=== PATIENT | female | born 1960 | race Caucasian/White ===

== ENCOUNTER 2020-10-08 16:47 | Emergency (ER) | payer MEDICAID, SELFPAY ==
--- NOTE | ~2020-10-08 | CT_ITS ---
EXAMINATION: CT HUMERUS WITH CONTRAST, RIGHT CLINICAL INFORMATION: Question of hematoma or extravasation. COMPARISON: Radiographs from earlier today. TECHNIQUE: Volume acquisition CT was performed through the right upper extremity after the administration of 85 mL of Omnipaque 350. Coronal and sagittal reconstructions were performed. This CT examination was performed using dose optimization techniques as appropriate, variously including the following: *Automated exposure control *Adjustment of mA and/or kV according to patient size (this includes techniques or standardized protocols for targeted exams where dose is matched to indication/reason for exam; i.e. extremities or head) *Use of iterative reconstruction technique DLP: 157 mGy-cm FINDINGS: Again seen is the fracture involving the mid humeral diaphysis with some foreshortening and overriding as well as about 40 degrees of varus angulation of the distal fracture fragment. No other fractures are seen. The study was performed during the venous phase and arterial structures were not opacified. The basilic and brachial veins as well as the visualized axillary vein appear unremarkable. The cephalic vein is patent. Subcutaneous edema is present. Although comparison with the other side is not possible, it seems that most muscle groups appear expanded but a discrete separate hematoma is not seen. No areas of contrast accumulation are seen to suggest active extravasation. CT/CT humerus RT w con IMPRESSION: No evidence of active extravasation. Redemonstration of right humeral fracture. The entire arm is swollen significantly including most muscle groups. A discrete separate hematoma is not seen. Arterial structures cannot be assessed, for that, a CT angiogram would be necessary.
--- NOTE | ~2020-10-08 | XR_ITS ---
EXAMINATION: XR SHOULDER, RIGHT CLINICAL INFORMATION: Severe right-sided shoulder pain. COMPARISON: None TECHNIQUE: 2 view of the right shoulder. FINDINGS: Transverse fracture through the mid humeral shaft. There is approximately 4.8 cm of foreshortening and approximately 1.5 cm of medial offset of the distal fracture fragment. The humeral head continues to demonstrate good articulation with the glenoid fossa. There are mild hypertrophic changes of the acromioclavicular joint. Visualized lung parenchyma is well aerated. There are old healed right posterior rib fractures. XR/XR shoulder RT min 2V IMPRESSION: Right humeral fracture.
[2020-10-08 16:57] VITALS: BP 148/80; PULSE 98; RESP 20; TEMP 37.1; O2SAT 95; BMI 23.4
[2020-10-08] MEDS: Morphine Sulfate 4 MG/ML CARTRIDGE IVPUSH (17:36)
[2020-10-08 17:38] LABS: MANUAL DIFF FLAG NO
--- NOTE | 2020-10-08 17:40 | PC.NURSE ---
IV placed and pt medicated for 10/10 left arm pain with IV Morphine as ordered.
[2020-10-08 17:48] LABS: Basophils Absolute Auto 0.1 X10*3/uL (0.0-0.2); Basophils Percent Auto 0.5 % (0-2); Eosinophils Percent Auto 0.1 % (0-4); Hematocrit 34.5 % (37-47); Hemoglobin 11.3 g/dl (12.0-16.0); Imm Gran Abs Auto 0.04 X10*3/uL (0.00-0.03); Imm Gran Pct Auto 0.4 % (0.0-0.4); Lymphocytes Percent Auto 20.1 % (20-40); Mean Corpuscular HGB Conc 32.8 g/dl (31.0-35.0); Mean Corpuscular Hemoglobin 30.3 pg (27.0-33.0); Mean Corpuscular Volume 92.5 fL (80-98); Mean Platelet Volume 9.4 fL (9.4-12.3); Monocytes Absolute Auto 1.2 X10*3/uL (0.1-1.2); Neutrophils Absolute Auto 6.5 X10*3/uL (2.0-8.3); Neutrophils Percent Auto 66.9 % (45-73); Platelet Count 214 X10*3/uL (160-400); Red Blood Count 3.73 X10*6/uL (4.20-5.50); Red Cell Distribution Width 13.1 % (11.0-16.0); White Blood Count 9.8 X10*3/uL (4.8-10.8)
[2020-10-08 17:56] LABS: INTERNATIONAL NORM RATIO 0.9 (0.9-1.1); Prothrombin Time 11.2 SEC (10.8-13.0)
[2020-10-08 17:59] LABS: Partial Thromboplastin Time 30.8 SEC (24.1-38.0)
[2020-10-08 18:16] LABS: Ethanol 258 mg/dL
[2020-10-08 18:23] LABS: Anion Gap 18 (12-20); Blood Urea Nitrogen 20 mg/dL (9-16); Calcium 9.4 mg/dL (8.4-10.2); Carbon Dioxide 23 mmol/L (22-29); Chloride 100 mmol/L (96-108); Creatinine Clr Calc Pharmacy 47.3; Estimated Glomerular Filt Rate 51; Glucose Random 118 mg/dL (60-115); Potassium 3.7 mmol/L (3.3-5.1); Sodium 137 mmol/L (135-145)
[2020-10-08 18:24] LABS: Lactic Acid 2.8 mmol/L (0.5-2.0)
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
[2020-10-08] MEDS: 0.9 % Sodium Chloride 1,000 ML 999 ML IVCONT ×2 (18:29→22:25)
--- NOTE | 2020-10-08 18:33 | PC.NURSE ---
Pt to CT at this time. IVF bolus continues to infuse
[2020-10-08 19:36] LABS: Reflex Lactate? Lactic Acid Added
--- NOTE | 2020-10-08 20:02 | PC.NURSE ---
PT AWARE THAT SHE HAS A BAD FRACTURE TO HER RIGHT UPPER ARM. PT HAS ASKED SEVERAL TIMES TO GO HOME. PT INFORMED THAT HER ARM WILL NOT HEAL PROPERLY AND SHE MAY NOT BE ABLE TO USE RIGHT ARM, UNLESS IT IS REPAIRED. RIGHT ARM PLACED IN SLING. PT REQUESTING ADDITIONAL PAIN MEDICATION. PT ABLE TO TAKE A FEW STEPS TO BATHROOM, PCT ASSISTS.
[2020-10-08] MEDS: HYDROmorphone HCl 1 MG/ML SYRINGE IVPUSH (20:33)
[2020-10-08 21:07] VITALS: BP 109/48; PULSE 92; RESP 16; O2SAT 94
[2020-10-08 21:35] LABS: ~Lactic Acid-LAB USE ONLY 2.3 mmol/L (0.5-2.0)
[2020-10-08 22:06] VITALS: BP 105/55; PULSE 94; RESP 16; TEMP 37.3; O2SAT 94
[2020-10-08 22:15] LABS: COVID-19 Test Negative (Negative)
[2020-10-08 22:31] LABS: Alanine Aminotransferase 35 U/L (0-31); Albumin Level 4.6 g/dL (3.5-5.0); Alkaline Phosphatase 64 U/L (39-117); Aspartate Amino Transferase 70 U/L (5-31); Bilirubin Direct 0.2 mg/dL (0.0-0.5); Bilirubin Total 0.6 mg/dL (0.0-1.0); Total Protein 7.7 g/dL (6.5-8.0)
--- NOTE | 2020-10-08 22:51 | PC.NURSE ---
RIGHT UPPER ARM SPLINTED WITH FIBERGLASS MATERIAL, WRAPPED IN AME AND SANDOR BANGAGE. ARM PLACED BACK IN SLING. GOOD DISTAL CIRCULATION IN FINGERS.
[2020-10-08 22:52] LABS: Reflex Lactate? 2 Y
--- NOTE | 2020-10-08 23:36 | PC.NURSE ---
WAITING FOR SECOND LIER OF NORMAL SALINE TO FINISH BEFORE 3RD LACTIC ACID IS DRAWN. PT HAS BEEN SLEEPING FOR MOST OF THE ER VISIT. PT UNDERSTANDS PLAN TO SEND HER HOME BY CHAIR VAN. PT WILL FOLLOW UP WITH ORTHO, FOR EVALUATION AND SURGICAL REPAIR.
[2020-10-09] VITALS: BP 114/75; PULSE 92; RESP 18; O2SAT 94
[2020-10-09 00:45] LABS: Alanine Aminotransferase 24 U/L (0-31); Albumin Level 3.3 g/dL (3.5-5.0); Alkaline Phosphatase 48 U/L (39-117); Aspartate Amino Transferase 50 U/L (5-31); Bilirubin Direct 0.2 mg/dL (0.0-0.5); Bilirubin Total 0.6 mg/dL (0.0-1.0); Total Protein 5.4 g/dL (6.5-8.0)
[2020-10-09 01:02] LABS: Lactic Acid 1.5 mmol/L (0.5-2.0)
--- NOTE | 2020-10-09 01:22 | PC.NURSE ---
pt ambulatory to bathroom with steady gait. pt asking for additional pain medication.
[2020-10-09] MEDS: oxyCODONE HCl Immed Release 5 MG TABLET 10 MG PO (01:30)
[2020-10-09] MEDS: Acetaminophen 325 MG TABLET 650 MG PO (01:31)
[2020-10-09 02:00] VITALS: BP 118/64; PULSE 100; RESP 16; O2SAT 94
--- NOTE | 2020-10-09 02:42 | PC.NURSE ---
PT TRANSPORTED HOME BY EMS, NEEDED ASSISTANCE TO BATHROOM FOR SAFETY. PT SLIGHTLY OFF BALANCE FOLLOWING MULTIPLE DOSES OF OPIATES TO CONTROL PAIN.
== END 2020-10-09 02:42 | disposition home or self-care (01) ==
PROVIDERS: Emergency Provider Emergency Medicine; PCP Nurse Practitioner Primary Care
DX: S42.301A Unspecified fracture of shaft of humerus, right arm, initial encounter for closed fracture (principal); Y04.8XXA Assault by other bodily force, initial encounter; R74.02 Elevation of levels of lactic acid dehydrogenase [LDH]; Z20.822 Contact with and (suspected) exposure to COVID-19; Y93.9 Activity, unspecified; Y92.9 Unspecified place or not applicable; Y99.9 Unspecified external cause status
CPT/HCPCS: 29105; 36415; 73030; 73201; 80048; 80076; 80320; 83605; 85025; 85610; 85730; 87040; 87077; 87205; 87635; 96361; 96374; 96375; 99284; J1170; J2270; Q9967

== ENCOUNTER 2020-10-14 07:57 | Outpatient (REF) | payer MEDICAID, SELFPAY ==
--- NOTE | ~2020-10-14 | XR_ITS ---
EXAMINATION: XR SHOULDER, RIGHT CLINICAL INFORMATION: Fracture COMPARISON: Previous x-ray 10/07/2020 TECHNIQUE: 2 views of the right shoulder. FINDINGS: There is a comminuted oblique fracture of the right mid humeral shaft. There is medial displacement of the distal humeral shaft with respect to the more proximal humeral shaft. There is arthritis at the acromioclavicular joint. There is overlying soft tissue swelling. XR/XR shoulder RT min 2V IMPRESSION: Comminuted displaced angulated fracture of the right mid humeral shaft.
--- NOTE | ~2020-10-14 | XR_ITS ---
EXAMINATION: XR HUMERUS, RIGHT CLINICAL INFORMATION: Displaced oblique fracture of the shaft of the humerus. COMPARISON: 10/20/2020 TECHNIQUE: AP and lateral views of the right humerus. FINDINGS: There is a comminuted mid humeral diaphyseal fracture again noted. 3 major parts. There is medial displacement and anterior displacement of the distal fragments. There is some callus formation present. While the proximal fragment and mid fragments are closely positioned, the distal fragment remains significantly displaced from the middle fragment. Alignment maintained at the shoulder and elbow. XR/XR humerus RT IMPRESSION: Comminuted right humeral diaphyseal fracture with persistent displacement of fragments. Callus formation noted.
== END 2020-10-14 07:58 | disposition home or self-care (01) ==
LOC: HO.HOSX 07:57
PROVIDERS: Visit Provider Physician Assistant
DX: S42.301A Unspecified fracture of shaft of humerus, right arm, initial encounter for closed fracture (principal)
CPT/HCPCS: 73030; 99212

== ENCOUNTER 2020-10-20 02:22 | Inpatient (IN) | payer MEDICAID, SELFPAY ==
[2020-10-20] VITALS (9 sets, daily range): BP systolic 111–167; BP diastolic 53–81; PULSE 61–86; RESP 13–18; TEMP 36–36.7; O2SAT 93–99; BMI 25.7
--- NOTE | ~2020-10-20 | CT_ITS ---
EXAMINATION: CT HUMERUS WITH CONTRAST, RIGHT CLINICAL INFORMATION: Displaced fracture with underlying ulceration. COMPARISON: 10/08/2020. TECHNIQUE: Contiguous helical images of the right humerus were obtained following the administration of IV contrast. Multiplanar reconstructions were performed. 75 mL of Omnipaque 350 were administered without incident. This CT examination was performed using dose optimization techniques as appropriate, variously including the following: *Automated exposure control *Adjustment of mA and/or kV according to patient size (this includes techniques or standardized protocols for targeted exams where dose is matched to indication/reason for exam; i.e. extremities or head) *Use of iterative reconstruction technique DLP: 630 mGy-cm FINDINGS: Again identified is an oblique displaced mid humeral diaphyseal fracture. The distal fracture fragment is laterally displaced by approximately 5 cm. Newly demonstrated about the fracture site is an area of fluid attenuation interspersed amongst the musculature measuring approximately 9.3 x 3.9 cm best demonstrated on image 33/91. There is faint peripheral enhancement about this focus. This extends just deep to the skin surface. Since the prior exam, no significant progression in osseous manifestations of healing. No significant calcified callus. CT/CT humerus RT w con IMPRESSION: About the oblique midshaft right humeral diaphyseal fracture is an approximately 9.3 x 3.9 cm low attenuation/fluid attenuation focus with faint peripheral enhancement. This extends to the skin surface. The appearances nonspecific and better evaluated with ultrasound, though could correspond to a hematoma or seroma. Superimposed infection cannot be excluded. No significant progression in osseous manifestations of healing since the prior exam.
--- NOTE | 2020-10-20 03:38 | ED_ITS ---
HPI - Extremity Problem General Chief complaint: Extremity Injury, Upper Stated complaint: Right arm pain/etoh Time Seen by Provider: 10/20/20 03:34 Source: patient Mode of arrival: EMS History of Present Illness HPI Narrative: This is a 59-year-old female who was evaluated on 10/08 for a significantly displaced right humeral fracture. Patient has since been re- evaluated by orthopedics and she states that a plastic splint was placed on her arm but that it fell off and the arm is causing her a lot of pain, discoloration but otherwise denies fevers, chills, numbness or tingling into the distal right upper extremity.. Related Data Home Medications Medication Instructions Recorded Confirmed acetaminophen 325 mg PO Q8H PRN 10/08/20 10/20/20 albuterol sulfate [ProAir HFA] 2 puff PO Q4-6H PRN 10/08/20 10/20/20 capsaicin [Arthritis Pain 1 appl TOPICAL BID PRN 10/08/20 10/20/20 Relief(capsaic)] cholecalciferol (vitamin D3) 50 mcg PO DAILY 10/08/20 10/20/20 [D3-2000] clonazepam 1 mg PO DAILY 10/08/20 10/20/20 fluoxetine 20 cap PO QAM 10/08/20 10/20/20 fluticasone propion-salmeterol 1 puff INHALATION Q12H 10/08/20 10/20/20 [Advair Diskus] folic acid 1 mg PO DAILY 10/08/20 10/20/20 levothyroxine 88 mcg PO DAILY 10/08/20 10/20/20 multivitamin [Daily-Roxie] 1 tab PO DAILY 10/08/20 10/20/20 pyridoxine (vitamin B6) 50 mg PO DAILY 10/08/20 10/20/20 thiamine HCl (vitamin B1) [Vitamin 100 mg PO DAILY 10/08/20 10/20/20 B-1] Previous Rx's Medication Instructions Recorded oxycodone-acetaminophen [Percocet] 1 tab PO Q6H PRN #14 tab 10/08/20 oxycodone 5 mg tablet 5 mg PO BID PRN 7 Days #14 tab 10/14/20 Allergies Allergy/AdvReac Type Severity Reaction Status Date / Time No Known Allergies Allergy Verified 10/20/20 04:53 Review of Systems Review of Systems: Pertinent positives and negatives as stated in HPI 10 point review of systems is otherwise negative. [facility] Past Medical History Source: nursing notes reviewed Medical History Alcohol abuse Anxiety Compartment syndrome Hypertension Hypothyroidism Rhabdomyolysis Right medial tibial plateau fracture Social History Social History Alcohol intake: never Smoking Status: Current every day smoker Use of substances other than those prescribed or required for medical reasons: No Advance Directives: No Physical Exam Vital Signs: Vital Signs: Last Vital Signs Temp 98 F 10/20/20 06:00 Pulse 65 10/20/20 06:00 Resp 18 10/20/20 06:00 BP 134/59 L 10/20/20 06:00 Pulse Ox 97 10/20/20 06:00 Body Mass Index 25.7 VITAL SIGNS: Reviewed. GENERAL: Smells like alcohol, Well developed, well nourished, moderate distress. HEAD: Normocephalic/atraumatic, EYES: PERRLA, EOMI NOSE: Nares patent bilateral OROPHARYNX: no oral lesions noted, posterior pharynx clear NECK: Supple, no adenopathy LUNGS: Normal breath sounds. No adventitious sounds or accessory muscle use. SpO2<98> CARDIOVASCULAR: Regular rate and rhythm without noted murmurs ABDOMEN: Soft, non-tender, non-distended with bowel sounds. EXTREMITIES: Significant deformity noted at right upper extremity with overlying ulceration located at what most corresponds with the distal aspect of the proximal fractured humerus, capillary refills less 3 seconds, palpable radial/ulnar pulse SKIN: Inspection of the skin reveals ulceration at overlying right humeral f racture NEUROLOGIC: Alert and oriented x 4. Course Course Course Narrative: This is a 59-year-old female with history and clinical presentation consistent with worsening findings at the fracture site on the right humerus with noted ulceration which is new and on review of lab work there is a noted new anemia as well CT findings that describes a large ?hematoma which was not present on prior imaging studies. Patient was subsequently typed and screened in this case was discussed with orthopedics who agrees with admission to medicine for observation for alcohol withdrawal protocol and they will see the patient in the morning. This case was also discussed with the hospitalist who is agreeable for admission. MDM - Extremity (Nontraumatic) Lab Data Result diagrams: 10/20/20 04:05 10/20/20 04:05 Labs: Lab Results 10/20/20 10/20/20 10/20/20 Range/Units 04:05 04:05 04:05 WBC 10.3 (4.8-10.8) X10*3/uL RBC 2.78 L D (4.20-5.50) X10*6/uL Hgb 8.7 L D (12.0-16.0) g/dl Hct 27.2 L D (37-47) % MCV 97.8 (80-98) fL MCH 31.3 (27.0-33.0) pg MCHC 32.0 (31.0-35.0) g/dl RDW 15.1 (11.0-16.0) % Plt Count 437 H D (160-400) X10*3/uL MPV 8.9 L (9.4-12.3) fL Immature Gran % (Auto) 1.0 H (0.0-0.4) % Neut % (Auto) 63.3 (45-73) % Lymph % (Auto) 23.6 (20-40) % [place] % (Auto) 10.0 (2-11) % Eos % (Auto) 1.7 (0-4) % Baso % (Auto) 0.4 (0-2) % Lymph # (Auto) 2.4 (1.2-4.9) X10*3/uL [place] # (Auto) 1.0 (0.1-1.2) X10*3/uL Eos # (Auto) 0.2 (0.0-0.4) X10*3/uL Baso # (Auto) 0.0 (0.0-0.2) X10*3/uL Abs Immat Gran (auto) 0.10 H (0.00-0.03) X10*3/uL Absolute Neuts (auto) 6.5 (2.0-8.3) X10*3/uL Absolute Nucleated RBC 0.000 (0.0-0.012) X10*3/uL Nucleated RBC % (auto) 0.0 (0.0-0.2) /100WBC PT (10.8-13.0) SEC INR (0.9-1.1) Sodium 142 (135-145) mmol/L Potassium 4.1 (3.3-5.1) mmol/L Chloride 108 (96-108) mmol/L Carbon Dioxide 17 L (22-29) mmol/L Anion Gap 21 H (12-20) BUN 17 H (9-16) mg/dL Creatinine 0.82 (0.5-1.4) mg/dL Estim Creat Clear Calc 69.1 Estimated GFR > 60 Random Glucose 88 (60-115) mg/dL Calcium 8.3 L D (8.4-10.2) mg/dL Total Bilirubin 0.2 (0.0-1.0) mg/dL AST 43 H (5-31) U/L ALT 21 (0-31) U/L Alkaline Phosphatase 50 (39-117) U/L Total Protein 6.2 L (6.5-8.0) g/dL Albumin 3.6 (3.5-5.0) g/dL Ethyl Alcohol 248 mg/dL COVID-19 ([facility]) (Negative) COVID-19 Clin Com 10/20/20 10/20/20 Range/Units 04:05 04:58 WBC (4.8-10.8) X10*3/uL RBC (4.20-5.50) X10*6/uL Hgb (12.0-16.0) g/dl Hct (37-47) % MCV (80-98) fL MCH (27.0-33.0) pg MCHC (31.0-35.0) g/dl RDW (11.0-16.0) % Plt Count (160-400) X10*3/uL MPV (9.4-12.3) fL Immature Gran % (Auto) (0.0-0.4) % Neut % (Auto) (45-73) % Lymph % (Auto) (20-40) % [place] % (Auto) (2-11) % Eos % (Auto) (0-4) % Baso % (Auto) (0-2) % Lymph # (Auto) (1.2-4.9) X10*3/uL [place] # (Auto) (0.1-1.2) X10*3/uL Eos # (Auto) (0.0-0.4) X10*3/uL Baso # (Auto) (0.0-0.2) X10*3/uL Abs Immat Gran (auto) (0.00-0.03) X10*3/uL Absolute Neuts (auto) (2.0-8.3) X10*3/uL Absolute Nucleated RBC (0.0-0.012) X10*3/uL Nucleated RBC % (auto) (0.0-0.2) /100WBC PT 12.2 (10.8-13.0) SEC INR 1.0 (0.9-1.1) Sodium (135-145) mmol/L Potassium (3.3-5.1) mmol/L Chloride (96-108) mmol/L Carbon Dioxide (22-29) mmol/L Anion Gap (12-20) BUN (9-16) mg/dL Creatinine (0.5-1.4) mg/dL Estim Creat Clear Calc Estimated GFR Random Glucose (60-115) mg/dL Calcium (8.4-10.2) mg/dL Total Bilirubin (0.0-1.0) mg/dL AST (5-31) U/L ALT (0-31) U/L Alkaline Phosphatase (39-117) U/L Total Protein (6.5-8.0) g/dL Albumin (3.5-5.0) g/dL Ethyl Alcohol mg/dL COVID-19 ([facility]) Negative (Negative) COVID-19 Clin Com See Note Discharge Plan Discharge Clinical Impression: Hematoma Displaced fracture of right humerus Qualifiers: Encounter type: subsequent encounter Humerus Location: shaft Fracture type: closed Fracture morphology: oblique Fracture healing: with delayed healing Qualified Code(s): S42.331G - Displaced oblique fracture of shaft of humerus, r ight arm, subsequent encounter for fracture with delayed healing Alcohol dependence Qualifiers: Substance use status: with intoxication Complication of substance-induced condition: uncomplicated Qualified Code(s): F10.220 - Alcohol dependence with intoxication, uncomplicated Anemia Qualifiers: Anemia type: other cause Other causes of anemia: acute posthemorrhagic Qualified Code(s): D62 - Acute posthemorrhagic anemia Patient Disposition: Admitted As Inpatient
[2020-10-20] MEDS: Ketorolac Tromethamine 15 MG/ML VIAL IVPUSH (03:50)
[2020-10-20] MEDS: Acetaminophen 325 MG TABLET 975 MG PO (03:50)
[2020-10-20 04:18] LABS: MANUAL DIFF FLAG NO
[2020-10-20 04:20] LABS: Basophils Percent Auto 0.4 % (0-2); Eosinophils Absolute Auto 0.2 X10*3/uL (0.0-0.4); Eosinophils Percent Auto 1.7 % (0-4); Hematocrit 27.2 % (37-47); Hemoglobin 8.7 g/dl (12.0-16.0); Lymphocytes Absolute Auto 2.4 X10*3/uL (1.2-4.9); Lymphocytes Percent Auto 23.6 % (20-40); Mean Corpuscular Hemoglobin 31.3 pg (27.0-33.0); Mean Corpuscular Volume 97.8 fL (80-98); Mean Platelet Volume 8.9 fL (9.4-12.3); Neutrophils Absolute Auto 6.5 X10*3/uL (2.0-8.3); Neutrophils Percent Auto 63.3 % (45-73); Platelet Count 437 X10*3/uL (160-400); Red Blood Count 2.78 X10*6/uL (4.20-5.50); Red Cell Distribution Width 15.1 % (11.0-16.0); White Blood Count 10.3 X10*3/uL (4.8-10.8)
[2020-10-20 04:38] LABS: Ethanol 248 mg/dL
[2020-10-20 04:42] LABS: Alanine Aminotransferase 21 U/L (0-31); Albumin Level 3.6 g/dL (3.5-5.0); Alkaline Phosphatase 50 U/L (39-117); Anion Gap 21 (12-20); Aspartate Amino Transferase 43 U/L (5-31); Bilirubin Total 0.2 mg/dL (0.0-1.0); Blood Urea Nitrogen 17 mg/dL (9-16); Calcium 8.3 mg/dL (8.4-10.2); Carbon Dioxide 17 mmol/L (22-29); Chloride 108 mmol/L (96-108); Creatinine Clr Calc Pharmacy 69.1; Estimated Glomerular Filt Rate > 60; Glucose Random 88 mg/dL (60-115); Potassium 4.1 mmol/L (3.3-5.1); Sodium 142 mmol/L (135-145); Total Protein 6.2 g/dL (6.5-8.0)
[2020-10-20 04:43] LABS: Prothrombin Time 12.2 SEC (10.8-13.0)
[2020-10-20] MEDS: 0.9 % Sodium Chloride 1,000 ML 999 ML IV (05:00)
[2020-10-20 05:20] LABS: COVID-19 Test Negative (Negative)
[2020-10-20] MEDS: iohexoL 350 MG/ML 75 ML INFUS..BTL IV (05:21)
[2020-10-20] MEDS: HYDROmorphone HCl 0.5 MG/0.5 ML SYRINGE 0.25 MG IVPUSH (06:23)
[2020-10-20] MEDS: chlordiazePOXIDE HCl 25 MG CAPSULE PO (06:23)
--- NOTE | 2020-10-20 07:17 | PC.NURSE ---
Pt resting in bed with eyes closed. Right arm noted to be swollen when compared to the left. Right upper extremity is warm and 2+ positive radial and ulnar pulses noted.
--- NOTE | 2020-10-20 10:08 | P.EN_ITS ---
Event Note Date of Service: 10/20/20 Event Note: Seen/Examined. Here with right humerus fracture, early aclhol with drawa, Ortho consult, Phenobarbital protocoll. Full H and P dictated
--- NOTE | 2020-10-20 10:08 | PM.EVENT ---
Event Note Date of Service: 10/20/20 Event Note: Seen/Examined. Here with right humerus fracture, early aclhol withdrawa, Ortho consult, Phenobarbital protocoll. Full H and P dictated
--- NOTE | 2020-10-20 11:18 | PM.CNOR ---
History of Present Illness HPI Consult date: 10/20/20 Consult reason: fracture Chief complaint: humerus fracture,alcohol withd Narrative: Patient presents to the emergency room for increased rate upper extremity pain. Patient sustained an injury where she fell striking the corner of a table about 2 weeks ago and presented to the emergency room where x-rays were obtained and the patient was found to have a right humeral shaft fracture. The patient followed up with Orthopedics in the outpatient setting last Wednesday. She was placed in a Olvera brace and instructed to follow up in 1 week with repeat x-rays. When patient presents today to the emergency department for increased pain the patient states that she was unable to wear the Olvera brace because it broke . Repeat x-rays and CT was obtained in the emergency department today. CT reveals a large hematoma/seroma and the fracture remains displaced. Orthopedics was then consulted for further evaluation. Review of Systems Review of Systems: Yes all other systems are reviewed and are negative PMFSH Past Medical History Medical History Alcohol abuse Anxiety Compartment syndrome Hypertension Hypothyroidism Rhabdomyolysis Right medial tibial plateau fracture Social History Social History Alcohol intake: never Smoking Status: Current every day smoker Use of substances other than those prescribed or required for medical reasons: No Advance Directives: No Meds Allergies Allergy/AdvReac Type Severity Reaction Status Date / Time No Known Allergies Allergy Verified 10/20/20 04:53 Home Medications Medication Instructions Recorded Confirmed Last Taken Type acetaminophen 325 mg PO Q8H PRN 10/08/20 10/20/20 Unknown History albuterol sulfate [ProAir HFA] 2 puff PO Q4-6H PRN 10/08/20 10/20/20 Unknown History capsaicin [Arthritis Pain 1 appl TOPICAL BID PRN 10/08/20 10/20/20 Unknown History Relief(capsaic)] cholecalciferol (vitamin D3) 50 mcg PO DAILY 10/08/20 10/20/20 Unknown History [D3-2000] clonazepam 1 mg PO DAILY 10/08/20 10/20/20 Unknown History fluoxetine 20 cap PO QAM 10/08/20 10/20/20 Unknown History fluticasone propion-salmeterol 1 puff INHALATION Q12H 10/08/20 10/20/20 Unknown History [Advair Diskus] folic acid 1 mg PO DAILY 10/08/20 10/20/20 Unknown History levothyroxine 88 mcg PO DAILY 10/08/20 10/20/20 Unknown History multivitamin [Daily-Roxie] 1 tab PO DAILY 10/08/20 10/20/20 Unknown History pyridoxine (vitamin B6) 50 mg PO DAILY 10/08/20 10/20/20 Unknown History thiamine HCl (vitamin B1) [Vitamin 100 mg PO DAILY 10/08/20 10/20/20 Unknown History B-1] Physical Exam Vital Signs: Vital Signs: Last Vital Signs Temp 98.0 F 10/20/20 08:00 Pulse 61 10/20/20 08:00 Resp 18 10/20/20 08:00 BP 124/64 10/20/20 08:00 Pulse Ox 95 10/20/20 08:00 Body Mass Index 25.7 Const: General: cooperative and no acute distress Orientation/consciousness: patient oriented x3 Resp: Effort & Inspection: normal respiratory effort and able to speak in complete sentences Cardio: Peripheral pulses: Peripheral pulses 2+ throughout Skin: General skin exam: no rashes or lesions noted Neuro: General: patient oriented x3 Extrem: Other: Notable deformity of the right humerus. Skin abrasion located at the lateral aspect below the humeral head with surrounding edema. Patient is able to flex and extend all digits. Sensation intact and equal bilaterally. Radial pulse intact. Results Labs Result Diagrams: 10/20/20 04:05 10/20/20 04:05 Labs: Abnormal lab results 10/20/20 10/20/20 Range/Units 04:05 04:05 RBC 2.78 L D (4.20-5.50) X10*6/uL Hgb 8.7 L D (12.0-16.0) g/dl Hct 27.2 L D (37-47) % Plt Count 437 H D (160-400) X10*3/uL MPV 8.9 L (9.4-12.3) fL Immature Gran % (Auto) 1.0 H (0.0-0.4) % Abs Immat Gran (auto) 0.10 H (0.00-0.03) X10*3/uL Carbon Dioxide 17 L (22-29) mmol/L Anion Gap 21 H (12-20) BUN 17 H (9-16) mg/dL Calcium 8.3 L D (8.4-10.2) mg/dL AST 43 H (5-31) U/L Total Protein 6.2 L (6.5-8.0) g/dL H & H 10/20/20 Range/Units 04:05 Hgb 8.7 L D (12.0-16.0) g/dl Hct 27.2 L D (37-47) % Coagulation 10/20/20 Range/Units 04:05 INR 1.0 (0.9-1.1) All other labs normal. Assessment and Plan (1) Displaced fracture of right humerus: Qualifiers: Encounter type: subsequent encounter Fracture healing: with delayed healing Fracture morphology: oblique Fracture type: closed Humerus Location: shaft Qualified Code(s): S42.331G - Displaced oblique fracture of shaft of humerus, right arm, subsequent encounter for fracture with delayed healing Status: Acute Ms. Rogers is a 59-year-old female who presents to the emergency department for increased right upper extremity pain. She sustained an injury about 2 weeks ago when she fell into a table and x-rays and CT obtained in the ER at that time revealed a displaced comminuted right humeral shaft fracture. She was seen in the Outpatient Orthopedics setting and was placed in a Olvera brace and instructed to follow up in 1 week with repeat x-rays. Unfortunately the patient states that she was unable to use the Olvera brace because it broke . Today a repeat CT scan was obtained in the ED where a large hematoma is now present and the displaced comminuted right humeral shaft fracture remains unchanged. The patient was placed in a sling and should remain in at all times. An Tato wrap may be placed to assist with swelling and to avoid skin breakdown.
--- NOTE | 2020-10-20 13:50 | HP_ITS ---
DATE OF SERVICE: 10/20/2020 CHIEF COMPLAINT: Right arm pain. HISTORY OF PRESENT ILLNESS: I reviewed the available records and spoke to the patient, and she is a 59-year-old female with history of hypertension, hypothyroidism, anxiety, history of fibromyalgia, history of compartment syndrome, documented history of alcohol use in the past. The patient was seen in the emergency room several days ago following a fall. The circumstances were not clear, although there has been report that alcohol use may have been involved. She was at a time diagnosed with a right humerus fracture, which was managed conservatively and she actually ended up seeing Dr. Morejon on outpatient basis and had some plastic cast inserted. The patient reported that the plastic cast fell and she has been having increasing pain, swelling in the area with a bruise over the area, and therefore came to the emergency room. The emergency room physician had reported that the patient may be in alcohol withdrawal, although in same history she writes that the patient never uses alcohol. At any event, if the patient is not having any signs of alcohol withdrawal at the time of this evaluation and the record also does not indicate that she has been treated for alcohol withdrawal in the emergency room other than receiving Librium 25 mg one time. The patient is, however, reporting excruciating pain in the right upper arm. She has received ketorolac earlier. PAST MEDICAL HISTORY: 1. Hypertension. 2. Hypothyroidism. 3. Anxiety. 4. History of rhabdomyolysis. 5. History of compartment syndrome. Details not available. 6. History of alcohol use in the past. PAST SURGICAL HISTORY: She has a history of right tibial plateau fracture with subsequent repair. FAMILY HISTORY: She does state that there is a family history of a hint of diabetes. SOCIAL HISTORY: She said that she does not work and is on SSI. She drank a couple of beers every other day. Last drink a couple of days ago. She smokes about a pack a day. Denied illicit drug use. REVIEW OF SYSTEMS: CONSTITUTIONAL: She does not have any fever. RESPIRATORY: No shortness of breath. CARDIAC: No chest pain. GI: No nausea or vomiting. : No dysuria. ENDOCRINE: No polyuria or polydipsia. No heat or cold intolerance. MUSCULOSKELETAL: Pain in the right arm as stated in the HPI. PSYCH/NEURO: No agitation, no confusion, no restlessness, no tremors. All other systems are reviewed and are negative. HOME MEDICATIONS: Reported to include: 1. Tylenol 325 mg p.o. q.8 p.r.n. for pain. 2. Albuterol 2 puffs q.4-6 hours p.r.n. for shortness of breath. 3. Capsaicin arthritis topically daily. 4. Cholecalciferol (vitamin D3) p.o. daily. 5. Clonazepam 1 mg p.o. daily. 6. Fluoxetine 20 mg p.o. daily. 7. Advair Diskus 1 puff q.12. 8. Folic acid 1 mg p.o. daily. 9. Levothyroxine 88 mcg p.o. daily. 10. Multivitamin 1 tablet p.o. daily. 11. Oxycodone 5 mg p.o. b.i.d. p.r.n. prescribed during the last visit in the emergency room. 12. Pyridoxine, vitamin B6, 50 mg p.o. daily. 13. Thiamine 100 mg p.o. daily. PHYSICAL EXAMINATION: VITAL SIGNS: Temperature is 98.0, pulse is 61, respiration is 18, blood pressure 124/64, O2 is 95% on room air. GENERAL: The patient does not seem to be in any acute distress. She is cooperative, frustrated at time. HEENT: Pupils are equal and reactive. NECK: Supple. CARDIOVASCULAR: Regular rate. S1 and S2. LUNGS: Fairly clear. ABDOMEN: Nontender, nondistended. EXTREMITIES: She has no edema in her legs. She does have a swelling and some hematoma overlying her right upper extremity, biceps area laterally, the area where she probably suffered the fracture. No fluctuance. She is able to move the arm. Her digits normal in coloration. Movement is also intact other than limited by pain in the right upper extremity. NEUROLOGIC: Current nerves II through XII intact. Motor function is normal other than limited mobility with the right upper extremity due to pain. SKIN: No rash. Again, has ecchymosis overlying the right upper extremity in the area of the biceps. LABORATORY DATA: WBC 10.3, hemoglobin is 8.7, hematocrit 27.2, platelet of 437. INR is 1. Sodium 142, potassium 4.1, chloride 108, bicarb 17, anion gap 21, BUN 17, creatinine 0.82, calcium 8.3, AST 43, ALT 21, alkaline phosphatase 50, total protein 6.2, albumin 3.6 and normal. Alcohol level of . COVID negative. Type B blood. ASSESSMENT: This is a 59-year-old female with a recent fall complicated by right humerus fracture that had been managed on outpatient basis conservatively. She presented with increasing pain. The cast has been falling off. There is also concern about early stage of alcohol withdrawal in this patient. PLAN: 1. For the humerus fracture, Orthopedics has been following her on an outpatient basis and will be asked to re-evaluate her for further management. Pain control with morphine. 2. Concern for alcohol dependency/early withdrawal. She is at risk for alcohol withdrawal and therefore we will give phenobarbital. 3. Anemia. Her hematocrit had dropped significantly since October 08 from 34 to 27, probably owing to blood loss from the fracture. She does not need transfusion at this time; however, we need to keep an eye on it. She is appropriately typed and screen. If her hemoglobin was to drop below 7, I would advise transfusion. 4. Transaminitis due to chronic alcohol use and likely alcoholic liver disease. 5. History of hypertension. I see no blood pressure medication on her home medication list; however, her blood pressure is within normal, so no action at this point. 6. Hypothyroidism. We will continue levothyroxine at 88 mcg daily. 7. Anxiety and depression. Continue fluoxetine. We will hold Klonopin given that the patient will be on phenobarbital. 8. Deep venous thrombosis prophylaxis. I will opt for a mechanical device given that the patient has hematoma with acute blood loss anemia. She is a full code. Plan of care discussed with the patient to her satisfaction, and the patient was also been evaluated at that time by the orthopedic PA. MD SHERWIN De Souza/SOY / [phone]
[2020-10-20] MEDS: Morphine Sulfate 4 MG/ML CARTRIDGE 2 MG IVPUSH (14:26)
[2020-10-20] MEDS: Dextrose 5 % and 0.45 % NaCl 1,000 ML 100 ML IVCONT (14:28)
[2020-10-20] MEDS: Cholecalciferol (Vitamin D3) 25 MCG TABLET 50 MCG PO (14:31)
--- NOTE | 2020-10-20 14:40 | PC.NURSE ---
Pt medicated for pain. She is resting comfortably at this time.
[2020-10-20] MEDS: PHENobarbitaL sodium 130 MG/ML VIAL 175 MG IM (17:45)
[2020-10-20] MEDS: Morphine Sulfate 2 MG/ML CARTRIDGE IVPUSH (19:16)
[2020-10-20] MEDS: 0.9 % Sodium Chloride Flush 3 ML SYRINGE IVFLUSH (19:16)
[2020-10-21] VITALS (7 sets, daily range): BP systolic 137–179; BP diastolic 56–80; PULSE 60–79; RESP 16–20; TEMP 35.9–36.8; O2SAT 95–98
[2020-10-21] MEDS: Morphine Sulfate 2 MG/ML CARTRIDGE IVPUSH ×4 (04:08→20:53)
[2020-10-21 07:05] LABS: MANUAL DIFF FLAG NO
[2020-10-21 07:17] LABS: Basophils Percent Auto 0.5 % (0-2); Eosinophils Absolute Auto 0.2 X10*3/uL (0.0-0.4); Eosinophils Percent Auto 2.8 % (0-4); Hemoglobin 8.8 g/dl (12.0-16.0); Imm Gran Abs Auto 0.06 X10*3/uL (0.00-0.03); Imm Gran Pct Auto 0.8 % (0.0-0.4); Lymphocytes Absolute Auto 1.1 X10*3/uL (1.2-4.9); Lymphocytes Percent Auto 14.4 % (20-40); Mean Corpuscular HGB Conc 32.6 g/dl (31.0-35.0); Mean Corpuscular Hemoglobin 31.2 pg (27.0-33.0); Mean Corpuscular Volume 95.7 fL (80-98); Mean Platelet Volume 8.7 fL (9.4-12.3); Monocytes Absolute Auto 0.7 X10*3/uL (0.1-1.2); Monocytes Percent Auto 8.9 % (2-11); Neutrophils Absolute Auto 5.7 X10*3/uL (2.0-8.3); Neutrophils Percent Auto 72.6 % (45-73); Platelet Count 424 X10*3/uL (160-400); Red Blood Count 2.82 X10*6/uL (4.20-5.50); Red Cell Distribution Width 14.6 % (11.0-16.0); White Blood Count 7.9 X10*3/uL (4.8-10.8)
[2020-10-21] MEDS: 0.9 % Sodium Chloride Flush 3 ML SYRINGE IVFLUSH ×2 (08:05→16:13)
--- NOTE | 2020-10-21 08:15 | P.PNOP_ITS ---
Subjective Subjective Date of Service: 10/21/20 Interval history: Anne-Marie is s/p right humeral shaft fracture about 2 weeks ago when she fell into a table at home. Patient resting comfortably in bed. Pain well managed. Maintained in a sling. Physical Exam Vital Signs: Vital Signs: Last Vital Signs Temp 97.2 F 10/21/20 08:08 Pulse 69 10/21/20 08:08 Resp 16 10/21/20 08:08 BP 159/56 H 10/21/20 08:08 Pulse Ox 95 10/21/20 08:08 Body Mass Index 25.7 Const: General: cooperative and no acute distress Orientation/consciousness: patient oriented x3 Resp: Effort & Inspection: normal respiratory effort and able to speak in complete sentences Cardio: Peripheral pulses: Peripheral pulses 2+ throughout Skin: General skin exam: no rashes or lesions noted Neuro: General: patient oriented x3 Extrem: Other: Notable deformity of the right humerus. Skin abrasion located at the lateral aspect below the humeral head with surrounding edema. Patient is able to flex and extend all digits. Sensation intact and equal bilaterally. Radial pulse intact. Progress Note: A&P Assessment and plan (1) Displaced fracture of right humerus: Status: Acute Assessment and Plan: Anne-Marie has been placed in a thermal molded humeral fracture brace. I have placed a stockinette under the brace to protect the skin. From an orthopedic standpoint there is no further care needed at this time. We will followup with Anne-Marie in 1 week in the out patient office to monitor for skin breakdown. Fall Risk Details Current Medications: Current Medications Generic Name Dose Route Start Last Admin Trade Name Zhang PRN Reason Stop Dose Admin Acetaminophen 325 mg 10/20/20 13:53 Acetaminophen 325 Mg Tablet PO Q8H PRN Pain Fluoxetine HCl 20 mg 10/21/20 09:00 Fluoxetine Hcl 20 Mg Capsule PO DAILY [facility] Fluticasone/Vilanterol 1 puff 10/21/20 08:00 Fluticasone/Vilanterol 100/25 Blst.W.Dev INHALE RDAILY [facility] Folic Acid 1 mg 10/21/20 09:00 Folic Acid 1 Mg Tablet PO DAILY [facility] Levothyroxine Sodium 88 mcg 10/21/20 09:00 Levothyroxine Sodium 88 Mcg Tablet PO DAILY [facility] Medication 1 each 10/20/20 14:30 No Benzodiazepines MISCELLANE DAILY [facility] Morphine Sulfate 2 mg 10/20/20 14:19 10/21/20 08:08 Morphine Sulfate 2 Mg/Ml Cartridge IVPUSH 2 mg Q4H PRN Administration Pain, Severe (Pain Scale 7-10) Multivitamins/Vitamin C 1 tab 10/21/20 09:00 Multivitamin Tablet PO DAILY [facility] Oxycodone HCl 5 mg 10/20/20 13:53 Oxycodone Hcl Immed Release 5 Mg Tablet PO BID PRN pain Phenobarbital 45 mg 10/21/20 09:00 Phenobarbital 15 Mg Tablet PO 10/22/20 21:01 BID [facility] Protocol Phenobarbital 30 mg 10/23/20 09:00 Phenobarbital 30 Mg Tablet PO 10/24/20 21:01 BID [facility] Protocol Phenobarbital 30 mg 10/25/20 09:00 Phenobarbital 30 Mg Tablet PO 10/26/20 09:01 DAILY [facility] Protocol Pyridoxine HCl 50 mg 10/21/20 09:00 Pyridoxine Hcl (Vitamin B6) 50 Mg Tablet PO DAILY [facility] Sodium Chloride 3 ml 10/20/20 16:00 10/21/20 08:05 0.9 % Sodium Chloride Flush 3 Ml Syringe IVFLUSH 3 ml QSHIFT [facility] Administration Thiamine HCl 100 mg 10/21/20 09:00 Thiamine Hcl 100 Mg Tablet PO DAILY [facility] Vitamin D 50 mcg 10/20/20 13:53 10/20/20 14:31 Cholecalciferol (Vitamin D3) 25 Mcg Tablet PO 50 mcg DAILY [facility] Administration Zolpidem Tartrate 5 mg 10/20/20 13:53 Zolpidem Tartrate 5 Mg Tablet PO BEDTIME PRN Insomnia Time Spent With Patient Time: Total time spent is greater than 50% in coordination of care (as documented) at patient's floor/unit and/or counseling patient: Time with patient: less than 15 minutes
--- NOTE | 2020-10-21 09:14 | MHC.CM.PN ---
EMR REVIEWED, PT ADMITTED WITH HUMERUS FX AND ETOH WITHDRAWAL, PT BEING TREATED W/PHENOBARBITAL, CM MET W/PT WHO IS ALERT & ORIENTED, LIVES ALONE AND REPORTS SHE HAS DME AT HOME BUT DOESN'T USE IT, PT HAS CANE, WHEELED WALKER AND RAILS IN BR, PT DENIES ANY HOME SERVICES AND DECLINES ANY SERVICES AT THIS TIME, PT REPORTS SHE DOES NOT WANT ANYONE COMING INTO THE HOME. PT OFFERED ASSISTANCE WITH A HCP HOWEVER DECLINES AT THIS TIME, PT ALSO DECLINED A BLANK FORM AND INFORMATION. PT ALSO DECLINING TO SPEAK WITH ANYONE ABOUT HER SUBSTANCE ABUSE AND HAS NO INTEREST IN TREATMENT OR MED ASSISTED TX. PCP: YAW BEAULIEU NP
[2020-10-21] MEDS: FLUoxetine HCl 20 MG CAPSULE PO (09:23)
[2020-10-21] MEDS: Multivitamin TABLET 1 TAB PO (09:24)
[2020-10-21] MEDS: Pyridoxine HCl (Vitamin B6) 50 MG TABLET PO (09:24)
[2020-10-21] MEDS: Thiamine HCL 100 MG TABLET PO (09:24)
[2020-10-21] MEDS: PHENobarbitaL 15 MG TABLET 45 MG PO ×2 (09:24→20:52)
[2020-10-21] MEDS: Levothyroxine Sodium 88 MCG TABLET PO (09:24)
[2020-10-21] MEDS: Folic Acid 1 MG TABLET PO (09:24)
[2020-10-21] MEDS: Cholecalciferol (Vitamin D3) 25 MCG TABLET 50 MCG PO (09:24)
[2020-10-21] MEDS: oxyCODONE HCl Immed Release 5 MG TABLET PO (13:06)
--- NOTE | 2020-10-21 15:35 | P.PNIM_ITS ---
Subjective Subjective Date of Service: 10/21/20 Interval History: No acute issues over night, patient right arm pain is bearable she denies any withdrawal symptoms no tremors, no shakiness, no nausea vomiting. ROS General no headache, no dizziness ,no fever chills. CVS no chest pain, no palpitation. Respiratory no cough, no sob. Gastrointestinal no nausea, no vomiting, no abdominal pain Physical Exam Vital Signs: Vital Signs: Last Vital Signs Temp 98.2 F 10/21/20 12:00 Pulse 60 10/21/20 12:00 Resp 18 10/21/20 12:00 BP 170/75 H 10/21/20 12:00 Pulse Ox 95 10/21/20 12:00 Body Mass Index 25.7 General resting comfortably in no acute distress. Neck is supple no JVD. CVS regular rate rhythm, Respiratory lungs clear to auscultation, no respiratory distress, no wheeze, no rhonchi. Gastrointestinal abdomen soft, nontender, bowel sounds audible, no guarding , no rigidity. Extremities no LE edema. Right upper extremity in thermal molded humeral fracture brace. Neuro nonfocal patient moving all 4 extremity, speech clear, no tremor. Skin no rash Objective Data Current Medications Generic Name Dose Route Start Last Admin Trade Name Freq PRN Reason Stop Dose Admin Acetaminophen 325 mg 10/20/20 13:53 Acetaminophen 325 Mg Tablet PO Q8H PRN Pain Fluoxetine HCl 20 mg 10/21/20 09:00 10/21/20 09:23 Fluoxetine Hcl 20 Mg Capsule PO 20 mg DAILY [facility] Administration Fluticasone/Vilanterol 1 puff 10/21/20 08:00 10/21/20 09:11 Fluticasone/Vilanterol 100/25 Blst.W.Dev INHALE Not Given RDAILY [facility] Folic Acid 1 mg 10/21/20 09:00 10/21/20 09:24 Folic Acid 1 Mg Tablet PO 1 mg DAILY [facility] Administration Levothyroxine Sodium 88 mcg 10/21/20 09:00 10/21/20 09:24 Levothyroxine Sodium 88 Mcg Tablet PO 88 mcg DAILY [facility] Administration Medication 1 each 10/20/20 14:30 No Benzodiazepines MISCELLANE DAILY [facility] Morphine Sulfate 2 mg 10/20/20 14:19 10/21/20 08:08 Morphine Sulfate 2 Mg/Ml Cartridge IVPUSH 2 mg Q4H PRN Administration Pain, Severe (Pain Scale 7-10) Multivitamins/Vitamin C 1 tab 10/21/20 09:00 10/21/20 09:24 Multivitamin Tablet PO 1 tab DAILY [facility] Administration Oxycodone HCl 5 mg 10/20/20 13:53 10/21/20 13:06 Oxycodone Hcl Immed Release 5 Mg Tablet PO 5 mg BID PRN Administration pain Phenobarbital 45 mg 10/21/20 09:00 10/21/20 09:24 Phenobarbital 15 Mg Tablet PO 10/22/20 21:01 45 mg BID [facility] Administration Protocol Phenobarbital 30 mg 10/23/20 09:00 Phenobarbital 30 Mg Tablet PO 10/24/20 21:01 BID [facility] Protocol Phenobarbital 30 mg 10/25/20 09:00 Phenobarbital 30 Mg Tablet PO 10/26/20 09:01 DAILY [facility] Protocol Pyridoxine HCl 50 mg 10/21/20 09:00 10/21/20 09:24 Pyridoxine Hcl (Vitamin B6) 50 Mg Tablet PO 50 mg DAILY [facility] Administration Sodium Chloride 3 ml 10/20/20 16:00 10/21/20 08:05 0.9 % Sodium Chloride Flush 3 Ml Syringe IVFLUSH 3 ml QSHIFT [facility] Administration Thiamine HCl 100 mg 10/21/20 09:00 10/21/20 09:24 Thiamine Hcl 100 Mg Tablet PO 100 mg DAILY [facility] Administration Vitamin D 50 mcg 10/20/20 13:53 10/21/20 09:24 Cholecalciferol (Vitamin D3) 25 Mcg Tablet PO 50 mcg DAILY [facility] Administration Zolpidem Tartrate 5 mg 10/20/20 13:53 Zolpidem Tartrate 5 Mg Tablet PO BEDTIME PRN Insomnia Labs CBC & Chem 7: 10/21/20 06:59 10/20/20 04:05 Assessment and Plan (1) Displaced fracture of right humerus: Status: Acute (2) Hematoma: Status: Acute (3) Alcohol dependence: Status: Acute (4) Anemia: Status: Acute (5) Fracture of shaft of humerus: Status: Acute Assessment and Plan: Displaced fracture of right humerus: Patient seen by Orthopedic surgery and placed in a thermal molded humeral fracture brace, patient has been instructed to follow-up with Orthopedic surgery in 1 week to monitor for skin breakdown Good pain control oxycodone, IV morphine and Tylenol for pain. Patient seen by Physical therapy and they are recommending home services on discharge to address home safety and for ADLs Alcohol dependence and early withdrawal. Patient has been placed on phenobarb protocol has no tremors or shakiness, blood pressure noted to be elevated, will continue to monitor strongly recommend to abstain from alcohol Will obtain care team consult. Acute blood loss anemia from left humeral fracture Hematocrit dropped but remained stable, since patient asymptomatic will hold off on blood transfusion Transaminitis due to chronic alcohol use LFTs are stable and improved from before. Hypothyroidism continue levothyroxine History of anxiety and depression continue fluoxetine. DVT prophylaxis with mechanical devices
[2020-10-21] MEDS: Ferrous Sulfate 324 MG TABLET.DR PO (16:12)
[2020-10-22] MEDS: 0.9 % Sodium Chloride Flush 3 ML SYRINGE IVFLUSH ×2 (00:39→08:18)
[2020-10-22] MEDS: Morphine Sulfate 2 MG/ML CARTRIDGE IVPUSH (01:44)
[2020-10-22 03:27] VITALS: BP 183/91; PULSE 62; RESP 16; TEMP 36.6; O2SAT 96
[2020-10-22] MEDS: oxyCODONE HCl Immed Release 5 MG TABLET PO ×2 (03:44→12:34)
[2020-10-22 06:41] LABS: MANUAL DIFF FLAG NO
[2020-10-22 06:47] LABS: Basophils Percent Auto 0.5 % (0-2); Eosinophils Absolute Auto 0.2 X10*3/uL (0.0-0.4); Eosinophils Percent Auto 3.2 % (0-4); Hematocrit 29.3 % (37-47); Hemoglobin 9.3 g/dl (12.0-16.0); Imm Gran Abs Auto 0.03 X10*3/uL (0.00-0.03); Imm Gran Pct Auto 0.5 % (0.0-0.4); Lymphocytes Absolute Auto 1.3 X10*3/uL (1.2-4.9); Mean Corpuscular HGB Conc 31.7 g/dl (31.0-35.0); Mean Corpuscular Hemoglobin 30.2 pg (27.0-33.0); Mean Corpuscular Volume 95.1 fL (80-98); Mean Platelet Volume 8.9 fL (9.4-12.3); Monocytes Absolute Auto 0.6 X10*3/uL (0.1-1.2); Monocytes Percent Auto 9.8 % (2-11); Neutrophils Absolute Auto 4.3 X10*3/uL (2.0-8.3); Platelet Count 450 X10*3/uL (160-400); Red Blood Count 3.08 X10*6/uL (4.20-5.50); Red Cell Distribution Width 14.3 % (11.0-16.0); White Blood Count 6.6 X10*3/uL (4.8-10.8)
[2020-10-22 07:15] LABS: Anion Gap 15 (12-20); Blood Urea Nitrogen 10 mg/dL (9-16); Calcium 8.8 mg/dL (8.4-10.2); Carbon Dioxide 26 mmol/L (22-29); Chloride 102 mmol/L (96-108); Creatinine Clr Calc Pharmacy 82.1; Estimated Glomerular Filt Rate > 60; Glucose Random 77 mg/dL (60-115); Potassium 4.3 mmol/L (3.3-5.1); Sodium 139 mmol/L (135-145)
[2020-10-22 08:00] VITALS: BP 154/70; PULSE 64; RESP 17; TEMP 36.2; O2SAT 93
[2020-10-22] MEDS: FLUoxetine HCl 20 MG CAPSULE PO (08:18)
[2020-10-22] MEDS: Cholecalciferol (Vitamin D3) 25 MCG TABLET 50 MCG PO (08:18)
[2020-10-22] MEDS: Ferrous Sulfate 324 MG TABLET.DR PO (08:18)
[2020-10-22] MEDS: Pyridoxine HCl (Vitamin B6) 50 MG TABLET PO (08:18)
[2020-10-22] MEDS: Thiamine HCL 100 MG TABLET PO (08:18)
[2020-10-22] MEDS: PHENobarbitaL 15 MG TABLET 45 MG PO (08:18)
[2020-10-22] MEDS: Folic Acid 1 MG TABLET PO (08:18)
[2020-10-22] MEDS: Multivitamin TABLET 1 TAB PO (08:18)
[2020-10-22] MEDS: Levothyroxine Sodium 88 MCG TABLET PO (08:18)
--- NOTE | 2020-10-22 11:22 | PM.DS ---
DS: Providers Provider Date of Service: 10/22/20 Date of admission: 10/20/20 10:07 Primary care physician: Willi Mcnamara MD Consults: 10/21/20 15:48 Consult to Care Team Routine Comment: Reason for consultation: Alcohol use DS: Diagnosis Discharge Diagnosis (1) Displaced fracture of right humerus: Status: Acute (2) Hematoma: Status: Acute (3) Alcohol dependence: Status: Acute (4) Anemia: Status: Acute (5) Fracture of shaft of humerus: Status: Acute DS: Medications Discharge Medications Home Medications: Home Medications Medication Instructions Recorded Confirmed Arthritis Pain Relief(capsaic) 1 appl TOPICAL BID PRN 10/08/20 10/20/20 acetaminophen 325 mg PO Q8H PRN 10/08/20 10/20/20 albuterol sulfate [ProAir HFA] 2 puff PO Q4-6H PRN 10/08/20 10/20/20 cholecalciferol (vitamin D3) 50 mcg PO DAILY 10/08/20 10/20/20 [D3-2000] clonazepam 1 mg PO DAILY 10/08/20 10/20/20 fluoxetine 20 cap PO QAM 10/08/20 10/20/20 fluticasone propion-salmeterol 1 puff INHALATION Q12H 10/08/20 10/20/20 [Advair Diskus] folic acid 1 mg PO DAILY 10/08/20 10/20/20 levothyroxine 88 mcg PO DAILY 10/08/20 10/20/20 multivitamin [Daily-Roxie] 1 tab PO DAILY 10/08/20 10/20/20 pyridoxine (vitamin B6) 50 mg PO DAILY 10/08/20 10/20/20 thiamine HCl (vitamin B1) [Vitamin 100 mg PO DAILY 10/08/20 10/20/20 B-1] Previous Rx's Medication Instructions Recorded oxycodone-acetaminophen [Percocet] 1 tab PO Q6H PRN #14 tab 10/08/20 amlodipine 5 mg PO DAILY #30 tab 10/22/20 DS: Summary Hospital Course Hospital Course: CHIEF COMPLAINT: Right arm pain. HISTORY OF PRESENT ILLNESS: I reviewed the available records and spoke to the patient, and she is a 59-year-old female with history of hypertension, hypothyroidism, anxiety, history of fibromyalgia, history of compartment syndrome, documented history of alcohol use in the past. The patient was seen in the emergency room several days ago following a fall. The circumstances were not clear, although there has been report that alcohol use may have been involved. She was at a time diagnosed with a right humerus fracture, which was managed conservatively and she actually ended up seeing Dr. Morejon on outpatient basis and had some plastic cast inserted. The patient reported that the plastic cast fell and she has been having increasing pain, swelling in the area with a bruise over the area, and therefore came to the emergency room. The emergency room physician had reported that the patient may be in alcohol withdrawal, although in same history she writes that the patient never uses alcohol. At any event, if the patient is not having any signs of alcohol withdrawal at the time of this evaluation and the record also does not indicate that she has been treated for alcohol withdrawal in the emergency room other than receiving Librium 25 mg one time. The patient is, however, reporting excruciating pain in the right upper arm. She has received ketorolac earlier. PAST MEDICAL HISTORY: 1. Hypertension. 2. Hypothyroidism. 3. Anxiety. 4. History of rhabdomyolysis. 5. History of compartment syndrome. Details not available. 6. History of alcohol use in the past. Displaced fracture of right humerus: Patient seen by Orthopedic surgery and placed in a thermal molded humeral fracture brace, patient has been instructed to follow-up with Orthopedic surgery in 1 week to monitor for skin breakdown continue oxycodone prn and Tylenol for pain. Patient seen by Occupational therapy and they are recommending home services on discharge to address home safety and for ADLs Alcohol dependence and early withdrawal. Patient treated with phenobarb withdrawal, patient refusing care team evaluation since feels she is aware of outpatient services. Acute blood loss anemia from left humeral fracture Hematocrit dropped but remained stable, since patient asymptomatic and hematocrit stable patient did not require blood transfusion. Transaminitis due to chronic alcohol use LFTs are stable and improved from before. Hypothyroidism continue levothyroxine History of anxiety and depression continue fluoxetine. Time Spent with Patient Time attestation: Total time spent providing and/or coordinating discharge services: Discharge coordination time: Greater than 30 minutes Physical Exam Vital Signs: Vital Signs: Last Vital Signs Temp 97.2 F 10/22/20 08:00 Pulse 64 10/22/20 08:00 Resp 17 10/22/20 08:00 BP 154/70 H 10/22/20 08:00 Pulse Ox 93 10/22/20 08:00 Body Mass Index 25.7 General resting comfortably in no acute distress. Neck is supple no JVD. CVS regular rate rhythm, Respiratory lungs clear to auscultation, no respiratory distress, no wheeze, no rhonchi. Gastrointestinal abdomen soft, nontender, bowel sounds audible, no guarding , no rigidity. Extremities no LE edema. Right upper extremity in thermal molded humeral fracture brace, palpable right radial pulse, patient able to flex all fingers right hand, swelling of right upper extremity persists.. Neuro nonfocal patient moving all 4 extremity, speech clear, no tremor. Skin no rash DS: Data Data Completed and Pending Labs on day of discharge: Laboratory Results - last 24 hr 10/22/20 10/22/20 06:05 06:05 WBC 6.6 RBC 3.08 L Hgb 9.3 L Hct 29.3 L MCV 95.1 MCH 30.2 MCHC 31.7 RDW 14.3 Plt Count 450 H MPV 8.9 L Immature Gran % (Auto) 0.5 H Neut % (Auto) 66.0 Lymph % (Auto) 20.0 [place] % (Auto) 9.8 Eos % (Auto) 3.2 Baso % (Auto) 0.5 Lymph # (Auto) 1.3 [place] # (Auto) 0.6 Eos # (Auto) 0.2 Baso # (Auto) 0.0 Abs Immat Gran (auto) 0.03 Absolute Neuts (auto) 4.3 Absolute Nucleated RBC 0.000 Nucleated RBC % (auto) 0.0 Sodium 139 Potassium 4.3 Chloride 102 Carbon Dioxide 26 Anion Gap 15 BUN 10 Creatinine 0.69 Estim Creat Clear Calc 82.1 Estimated GFR > 60 Random Glucose 77 Calcium 8.8 D Discharge Plan Discharge Patient Disposition: Home Health Service Referrals: [facility] [Outside] ([facility] PLEASE CALL ABOVE NUMBER IF YOU HAVE NOT HEARD FROM VISITING NURSE BY SEBASTIAN 10/23/20) Willi Mcnamara MD [Primary Care Provider] - Discharge Medications: New amlodipine 5 mg Tablet 5 mg PO DAILY Qty: 30 RF: 0 Continued multivitamin [Daily-Roxie] Tablet 1 tab PO DAILY RF: 0 acetaminophen 325 mg tablet 325 mg PO Q8H PRN (Reason: Pain) RF: 0 clonazepam 1 mg tablet 1 mg PO DAILY RF: 0 thiamine HCl (vitamin B1) [Vitamin B-1] 100 mg tablet 100 mg PO DAILY RF: 0 Arthritis Pain Relief(capsaic) 0.075 % cream 1 appl topical BID PRN (Reason: pain) RF: 0 levothyroxine 88 mcg tablet 88 mcg PO DAILY RF: 0 pyridoxine (vitamin B6) 50 mg tablet 50 mg PO DAILY RF: 0 folic acid 1 mg tablet 1 mg PO DAILY RF: 0 fluticasone propion-salmeterol [Advair Diskus] 100-50 mcg/dose blister with device 1 puff inhalation Q12H RF: 0 albuterol sulfate [ProAir HFA] 90 mcg/actuation HFA aerosol inhaler 2 puff PO Q4-6H PRN (Reason: Wheezing) RF: 0 fluoxetine 20 mg capsule 20 cap PO QAM RF: 0 cholecalciferol (vitamin D3) [D3-2000] 50 mcg (2,000 unit) capsule 50 mcg PO DAILY RF: 0 oxycodone-acetaminophen [Percocet] 5-325 mg tablet 1 tab PO Q6H PRN (Reason: pain) Qty: 14 RF: 0 Discontinued oxycodone 5 mg tablet 5 mg PO BID PRN (Reason: pain) 7 Days Qty: 14 RF: 0 Discharge Orders: Discharge Order (Routine); Ordered 10/22/20 Ordered By: Fanny Mas Diet: low fat, low cholesterol Activity on Discharge: As tolerated Stand Alone Forms: Patient Portal Discharge page Care Plan Goals: Patient being discharged home with [facility]NA and OT services strongly recommend to follow-up with orthopedic surgeon in 1 week time/patient declined care team consult strongly recommend to abstain from alcohol, is started on new medication Norvasc 5 mg daily for elevated blood pressure Health Concerns: Right humeral fracture/hematoma/alcohol withdrawal and dependence/hypertension Plan of Treatment: Follow-up with primary care physician and Orthopedic surgery in 1 week time
--- NOTE | 2020-10-22 11:40 | MHC.RECOVRN ---
T/w attempted to meet with pt after consult to CARE Team was placed for alcohol use disorder. T/w spoke with pts RN who reiterated that pt did not want to speak to the Recovery Support Team. Resources were left for pt as well as t/w card if she would like to discuss recovery at a different time.
[2020-10-22 12:00] VITALS: BP 184/93; PULSE 74; RESP 18; TEMP 36.6; O2SAT 93
[2020-10-22 12:32] VITALS: BP 170/68; PULSE 74
[2020-10-22] MEDS: amLODIPine Besylate 5 MG TABLET PO (12:32)
--- NOTE | 2020-10-22 12:36 | MHC.CM.PN ---
PT DISCHARGING TODAY AT 2PM HOME W/[facility] FOR HALF-WAY AND HOME OT, [employer] FOR TRANSPORTATION, PT CONT'S TO DECLINE SA [place]
--- NOTE | 2020-10-22 16:30 | W.MHC.F2F ---
Service Date Service Date: 10/22/20 Encounter Date of encounter: 10/22/20 Encounter: Patient with right humeral fracture/pain and high blood pressure will need blood pressure monitoring pain management and follow-up on skin integrity at site of humeral fracture. Reasons for Services Reason for mcfp: medication management and other Reason for occupational therapy: home safety and mobility and ADL training Homebound: Leaving the home is medically contraindicated at this time without the asist of a device and/or another person due th the listed conditions above and below. Reason homebound: weakness related to hospital stay and other Homebound supporting statement: Patient with right humeral fracture /pain difficult to carry on ADLs. Certification: Based on the above findings, I certify that this patient is confined to the home and needs intermittent mcfp care, physical therapy and/or speech therapy, or continues to need occupational therapy. The patient is under my care, and I have initiated the establishment of the plan of care. The patient will be followed by a physician who will periodically review the plan of care.
--- NOTE | 2020-10-23 08:33 | MHC.CM.PN ---
FACE TO FACE COMPLETED BY HOSPITALIST AND SENT TO [facility]IA [facility] REFERRAL.
--- NOTE | 2020-10-23 10:22 | MHC.CM.PN ---
PER [facility] PT IS ASCTIVE WITH [facility], PT DID NOT DISCLOSE INFORMATION ON ADMISSION, REFERRAL FOR RESUMPTION OF CARE WAS SENT [facility]IA [employer].
== END 2020-10-22 13:50 | disposition home health service (06) | DRG 342 ==
LOC: HO.ED 06:13 → HO.EDOVER 11:30 → HO.S3 15:51
PROVIDERS: Admitting Provider Internal Medicine; Emergency Provider Student in an Organized Health Care Education/Training Program; PCP Nurse Practitioner Primary Care; Visit Provider Hospitalist
DX: S42.331A Displaced oblique fracture of shaft of humerus, right arm, initial encounter for closed fracture (principal); D62 Acute posthemorrhagic anemia; S40.021A Contusion of right upper arm, initial encounter; E03.9 Hypothyroidism, unspecified; F10.229 Alcohol dependence with intoxication, unspecified; W18.30XA Fall on same level, unspecified, initial encounter; Y93.9 Activity, unspecified; Y92.9 Unspecified place or not applicable; Y99.9 Unspecified external cause status; R74.01 Elevation of levels of liver transaminase levels; F32.9 Major depressive disorder, single episode, unspecified; F10.239 Alcohol dependence with withdrawal, unspecified; F41.9 Anxiety disorder, unspecified; Z20.822 Contact with and (suspected) exposure to COVID-19; Z79.890 Hormone replacement therapy; Z79.899 Other long term (current) drug therapy
CPT/HCPCS: 36415; 73201; 80048; 80053; 80320; 85025; 85610; 86850; 86900; 87635; 96361; 96374; 96375; 97110; 97161; 97165; 99285; J1170; J1885; J2270; J2560; Q9967

== ENCOUNTER → 2020-11-01 08:22 | Outpatient (BNVA) | payer MEDICAID, SELFPAY | PROVIDERS: PCP Nurse Practitioner Primary Care; Visit Provider Physician Assistant | DX: S42.33 Oblique fracture of shaft of humerus (principal) | CPT/HCPCS: 73060; 99212 ==

== ENCOUNTER 2020-11-15 09:23 | Outpatient (REF) | payer MEDICAID, SELFPAY ==
--- NOTE | ~2020-11-15 | XR_ITS ---
EXAMINATION: XR HUMERUS, RIGHT CLINICAL INFORMATION: Fracture follow-up COMPARISON: Radiographs of the right humerus 11/01/2020 TECHNIQUE: AP and lateral views of the right humerus. FINDINGS: Again demonstrated is a comminuted fracture of the proximal right humeral diaphysis. Again noted is medial displacement of the distal fracture fragment, however, alignment does appear slightly improved. There has been mild interval callus formation. Overlying soft tissue swelling is again appreciated. Old right-sided rib fractures noted. XR/XR humerus RT IMPRESSION: Mild interval callus formation of displaced comminuted humeral fracture.
== END 2020-11-15 09:24 | disposition home or self-care (01) ==
LOC: HO.HOSX 09:23
PROVIDERS: Visit Provider Physician Assistant
DX: S42.33 Oblique fracture of shaft of humerus (principal); F17.200 Nicotine dependence, unspecified, uncomplicated
CPT/HCPCS: 73060; 99212

== ENCOUNTER 2020-12-13 07:35 | Outpatient (REF) | payer MEDICAID, SELFPAY | END 2020-12-13 07:36 | disposition home or self-care (01) | LOC: HO.HOSX 07:35 | PROVIDERS: Visit Provider Physician Assistant | DX: Z13.89 Encounter for screening for other disorder (principal) ==

== ENCOUNTER 2021-07-21 11:34 | Emergency (ER) | payer MEDICAID, SELFPAY ==
--- NOTE | ~2021-07-21 | XR_ITS ---
EXAMINATION: XR HUMERUS, RIGHT CLINICAL INFORMATION: Fracture follow-up. COMPARISON: Radiograph dated from 11/15/2020. TECHNIQUE: AP and lateral views of the right humerus. FINDINGS: Interval placement of a large lateral fixation plate with multiple traversing screws along a comminuted fracture of the right humerus with improved and near-anatomic alignment and also signs of interval healing with bony bridging and callus formation. No evidence of hardware failure. Multiple surgical clips also overlie the surgical bed. No new fractures or malalignment. XR/XR humerus RT IMPRESSION: No evidence of hardware failure. Improved alignment of the humeral fracture with signs of healing. No new injuries.
[2021-07-21 11:42] VITALS: PULSE 60; O2SAT 98
[2021-07-21 12:28] VITALS: BP 157/86; PULSE 92; RESP 16; TEMP 37; O2SAT 95; BMI 27.4
--- NOTE | 2021-07-21 12:30 | ED_ITS ---
HPI - Extremity Problem General Chief complaint: Extremity Injury, Upper Stated complaint: FALL,R ARM PAIN Time Seen by Provider: 07/21/21 12:23 Source: patient Mode of arrival: EMS Limitations: other (Uncooperative) History of Present Illness HPI Narrative: Patient comes to the emergency room by ambulance, complaining right arm pain. Patient had an injury to the right humerus which resulted in comminuted humeral shaft fracture which occurred on 10/08/2020. Patient states that she had surgery, states that she had surgery done at [facility]. Patient states that she did not fall recently are today, patient reports no recent head injuries, patient states that the pain in her right arm has been ongoing for months. Patient denies any new symptoms Related Data Home Medications Medication Instructions Recorded Confirmed acetaminophen 325 mg tablet 325 mg PO Q8H PRN 10/08/20 10/20/20 albuterol sulfate 90 mcg/actuation 2 puff PO Q4-6H PRN 10/08/20 10/20/20 aerosol inhaler (ProAir HFA) capsaicin 0.075 % topical cream 1 appl TOPICAL BID PRN 10/08/20 10/20/20 (Arthritis Pain Relief (capsaicin)) cholecalciferol (vitamin D3) 50 50 mcg PO DAILY 10/08/20 10/20/20 mcg (2,000 unit) capsule (D3-2000) clonazepam 1 mg tablet 1 mg PO DAILY 10/08/20 10/20/20 fluoxetine 20 mg capsule 20 cap PO QAM 10/08/20 10/20/20 fluticasone 100 mcg-salmeterol 50 1 puff INHALATION Q12H 10/08/20 10/20/20 mcg/dose blistr powdr for inhalation (Advair Diskus) folic acid 1 mg tablet 1 mg PO DAILY 10/08/20 10/20/20 levothyroxine 88 mcg tablet 88 mcg PO DAILY 10/08/20 10/20/20 multivitamin (Daily-Roxie) 1 tab PO DAILY 10/08/20 10/20/20 pyridoxine (vitamin B6) 50 mg 50 mg PO DAILY 10/08/20 10/20/20 tablet thiamine HCl (vitamin B1) 100 mg 100 mg PO DAILY 10/08/20 10/20/20 tablet (Vitamin B-1) Previous Rx's Medication Instructions Recorded amlodipine 5 mg tablet 5 mg PO DAILY #30 tab 10/22/20 oxycodone 5 mg tablet 5 mg PO Q8H PRN #21 tab 11/29/20 oxycodone 5 mg tablet 5 mg PO Q6H PRN #20 tab 12/05/20 acetaminophen 500 mg tablet 500 mg PO QID PRN #20 tab 07/21/21 oxycodone 5 mg tablet 5 mg PO BID PRN #6 tab 07/21/21 Allergies Allergy/AdvReac Type Severity Reaction Status Date / Time No Known Allergies Allergy Verified 10/20/20 04:53 Review of Systems Review of Systems: Constitutional : No Weight loss, No Fever, No Chills, No Night Sweats, No Fatigue, No Malaise ENT/Mouth : No Hearing loss, No Ear Pain, No Nasal Congestion, No Sinus Pain, No Hoarseness, No sore throat, No Rhinorrhea, No Swallowing Difficulty Eyes: No Eye Pain, No Swelling, No Redness, No Foreign Body, No Discharge, No Vision Changes Cardiovascular : No Chest Pain, No SOB, No Dyspnea on Exertion, No Orthopnea, No Edema, No Palpitations Respiratory : No Cough, No Sputum, No Wheezing, No Smoke Exposure, No Dyspnea Gastrointestinal : No Nausea, No Vomiting, No Diarrhea, No Constipation, No abdominal Pain, No Hematochezia, No Melena Genitourinary : no irregular bleeding, No Dysuria, No Urinary Frequency, No Hematuria, No Urinary Incontinence, No Urgency, No Flank Pain, No Urinary Flow Changes, No Hesitancy Musculoskeletal : Complaining of chronic right upper arm pain Skin : No Skin Lesions, No rash Neuro : No Weakness, No Numbness, No Paresthesias, No Loss of Consciousness, No Dizziness, No Headache Psych : No Anxiety/Panic, No Depression, No SI/HI/AH/VH, No Social Issues, Heme/Lymph: No Bruising, No Bleeding,No Lymphadenopathy Endocrine : No Polyuria, No Polydipsia, No Temperature Intolerance [facility] Past Medical History Medical History Alcohol abuse Anxiety Compartment syndrome Hypertension Hypothyroidism Rhabdomyolysis Right medial tibial plateau fracture Social History Social History Household Members: None Housing: Apartment Do you presently have visiting nurse or other home services: Yes Alcohol intake: current Patient Tobacco Use Status: Current everyday Tobacco user Second Hand Smoke Exposure: Yes Use of substances other than those prescribed or required for medical reasons: No Advance Directives: No Advance Directives Information Provided: Yes Patient : No service: No Current occupational status: disabled Physical Exam Vital Signs: Vital Signs: Last Vital Signs Temp 98.6 F 07/21/21 12:28 Pulse 77 07/21/21 13:01 Resp 16 07/21/21 13:01 BP 139/82 07/21/21 13:01 Pulse Ox 97 07/21/21 13:01 BMI result Body Mass Index 27.4 Const: Other: Appearance: Alert. Oriented X3. No acute distress. Patient seems intoxicated, belligerent towards security Eyes: Pupils equal, round and reactive to light. ENT: Pharynx normal. Neck: Normal inspection. Neck supple. No lymph nodes noted. No crepitus CVS: Normal heart rate and rhythm. Pulses normal. Normal S1 and S2 Respiratory: No respiratory distress. Breath sounds normal. No Wheezing. No rales Abdomen: Soft and nontender. No rigidity. No distention. good BS x4 Skin: Skin warm and dry. Normal skin color. Normal skin turgor. Extremities: Patient is able to move her right extremity joint with limited range of motion due to pain. Neuro: Oriented X 3. No motor deficit. No sensory deficit. Moving all extermities. No slurred speech. Although patient seems slightly intoxicated, patient has a stable gait, ambulating by herself Course Course Course Narrative: Reviewing patient's record, the last time that she was seen by Orthopedics was 11/15/2020. By this date, patient had not had surgery yet. I discussed the x-ray findings with the patient, no acute fractures. I discussed with the patient that she would benefit from physical therapy and a referral to the Pain Clinic by her primary care physician. MDM - Extremity (Nontraumatic) Imaging Data Humerus x-ray: Radiologist's impression: [address] [address] XRay Report Signed Patient: Anne-Marie Rogers MR#: [id number] : 1960 Acct:[id number] Age/Sex: 60 / F ADM Date: 07/21/21 Loc: HO.ED Attending Dr: Ordering Physician: Anat Hook MD Date of Service: 07/21/21 Procedure(s): XR humerus RT Accession Number(s): [id number] cc: Anat Hook MD~ EXAMINATION: XR HUMERUS, RIGHT CLINICAL INFORMATION: Fracture follow-up.? COMPARISON: Radiograph dated from 11/15/2020.? TECHNIQUE: AP and lateral views of the right humerus. FINDINGS: Interval placement of a large lateral fixation plate with multiple traversing screws along a comminuted fracture of the right humerus with improved and near-anatomic alignment and also signs of interval healing with bony bridging and callus formation. No evidence of hardware failure. Multiple surgical clips also overlie the surgical bed. No new fractures or malalignment.? XR/XR humerus RT IMPRESSION: No evidence of hardware failure. ? Improved alignment of the humeral fracture with signs of healing. ? No new injuries. Discharge Plan Discharge Clinical Impression: Chronic pain of right upper extremity Patient Disposition: Home, Self-Care Instructions: Arm Pain (ED) Additional Instructions: Please follow-up with your primary care physician tomorrow. Please discuss with your primary care physician about a referral to the pain clinic and possibly physical therapy. If you have any worsening or new symptoms, please return to the emergency room or call 911 Prescriptions: New oxycodone 5 mg tablet 5 mg PO BID PRN (Reason: pain) Qty: 6 RF: 0 acetaminophen 500 mg tablet 500 mg PO QID PRN (Reason: fever or pain) Qty: 20 RF: 0 No Action oxycodone 5 mg tablet 5 mg PO Q8H PRN (Reason: pain) Qty: 21 RF: 0 oxycodone 5 mg tablet 5 mg PO Q6H PRN (Reason: pain) Qty: 20 RF: 0 multivitamin [Daily-Roxie] Tablet 1 tab PO DAILY RF: 0 acetaminophen 325 mg tablet 325 mg PO Q8H PRN (Reason: Pain) RF: 0 clonazepam 1 mg tablet 1 mg PO DAILY RF: 0 thiamine HCl (vitamin B1) [Vitamin B-1] 100 mg tablet 100 mg PO DAILY RF: 0 Arthritis Pain Relief(capsaic) 0.075 % cream 1 appl topical BID PRN (Reason: pain) RF: 0 levothyroxine 88 mcg tablet 88 mcg PO DAILY RF: 0 pyridoxine (vitamin B6) 50 mg tablet 50 mg PO DAILY RF: 0 folic acid 1 mg tablet 1 mg PO DAILY RF: 0 fluticasone propion-salmeterol [Advair Diskus] 100-50 mcg/dose blister with device 1 puff inhalation Q12H RF: 0 albuterol sulfate [ProAir HFA] 90 mcg/actuation HFA aerosol inhaler 2 puff PO Q4-6H PRN (Reason: Wheezing) RF: 0 fluoxetine 20 mg capsule 20 cap PO QAM RF: 0 cholecalciferol (vitamin D3) [D3-2000] 50 mcg (2,000 unit) capsule 50 mcg PO DAILY RF: 0 amlodipine 5 mg Tablet 5 mg PO DAILY Qty: 30 RF: 0
[2021-07-21] MEDS: oxyCODONE HCl Immed Release 5 MG TABLET PO (13:00)
[2021-07-21 13:01] VITALS: BP 139/82; PULSE 77; RESP 16; O2SAT 97
== END 2021-07-21 14:37 | disposition home or self-care (01) ==
PROVIDERS: Emergency Provider Emergency Medicine
DX: M79.601 Pain in right arm (principal); G89.29 Other chronic pain; I10 Essential (primary) hypertension
CPT/HCPCS: 73060; 99283; 99284